=== PATIENT | female | born 1935 | race Asian ===

== ENCOUNTER 2020-12-02 12:38 | Emergency (ER) | payer MEDICARE, OTHER ==
[~2020-12-02] VITALS: Ht 152.4 cm; Wt 54.4 kg
[2020-12-02 12:53] VITALS: BP 139/67
[2020-12-02 13:20] LABS: BASOPHILS % (AUTO) 0.5 % (0.0-2.0); EOSINOPHILS % (AUTO) 0.1 % (0.0-6.0); HEMATOCRIT 35 % (33-45); HEMOGLOBIN 11.3 g/dL (11.5-14.8); LYMPHOCYTES # (AUTO) 1.7 /CMM (0.8-4.8); LYMPHOCYTES % (AUTO) 24.3 % (20.0-44.0); MEAN CORPUSCULAR HGB CONC 32 g/dl (31.0-36.0); MEAN CORPUSCULAR VOLUME 84 fL (82-100); MONOCYTES # (AUTO) 0.8 /CMM (0.1-1.30); MONOCYTES % (AUTO) 10.7 % (2.0-12.0); NEUTROPHILS # (AUTO) 4.6 /CMM (1.8-8.9); NEUTROPHILS % (AUTO) 64.4 % (43.0-81.0); PLATELET COUNT (AUTO) 175 /CMM (150-450); WHITE BLOOD COUNT (AUTO) 7.1 K/uL (4.3-11.0)
--- NOTE | 2020-12-02 13:21 | NUR ---
URINE SAMPLE COLLECTED AND SENT TO LAB.
[2020-12-02 14:27] LABS: ALANINE AMINOTRANSFERASE 38 U/L (12-78); ALBUMIN 3.7 g/dL (3.4-5.0); ALKALINE PHOSPHATASE 71 U/L (46-116); ASPARTATE AMINOTRANSFERASE 32 U/L (15-37); BILIRUBIN,DIRECT 0.2 mg/dL (0.0-0.2); BILIRUBIN,TOTAL 0.6 mg/dL (0.2-1.0); CALCIUM, SERUM 8.8 mg/dL (8.5-10.1); CARBON DIOXIDE 27 mmol/L (21-32); CHLORIDE 98 mmol/L (98-107); CREATININE 0.9 mg/dL (0.6-1.3); GLUCOSE 95 mg/dL (74-106); POTASSIUM 3.9 mmol/L (3.5-5.1); SODIUM SERUM 133 mmol/L (136-145); TOTAL PROTEIN, SERUM 7.8 g/dL (6.4-8.2); UREA NITROGEN, BLOOD 20 mg/dL (7-18)
[2020-12-02 15:30] LABS: BILIRUBIN,URINE NEGATIVE (NEGATIVE); COLOR,URINE YELLOW (YELLOW); LEUKOCYTE ESTERASE ,URINE TRACE (NEGATIVE); NITRITE, URINE NEGATIVE (NEGATIVE); PH,URINE 5.5 (5.0-8.0); PROTEIN,URINE NEGATIVE (NEGATIVE); UGLUCOSE NEGATIVE (NEGATIVE); UROBILINOGEN,URINE 0.2 EU/dL (0.2)
[2020-12-02 16:07] LABS: BACTERIA,URINE RARE /HPF (None Seen); SQUAMOUS EPITHELIAL CELL,UR 0-2 /HPF (None Seen)
--- NOTE | 2020-12-02 16:43 | NUR ---
LAB CALLED PT COVID-19 POSITIVE (+)
--- NOTE | 2020-12-02 16:45 | NUR ---
CALLED AND NOTIFIED OF (+) RAPID COVID RESULT
== END 2020-12-02 16:00 | disposition home or self-care (01) ==
LOC: ER 12:41
DX: U07.1 COVID-19 (principal); R94.31 Abnormal electrocardiogram [ECG] [EKG]; I10 Essential (primary) hypertension; E11.9 Type 2 diabetes mellitus without complications
CPT/HCPCS: 36415; 71045-TC; 80048-TC; 80076-TC; 81001; 83605-TC; 84484-TC; 85025-TC; 85730-TC; 87040-TC; 87086-TC; C9803; U0003

== ENCOUNTER 2020-12-08 18:32 | Inpatient (IN) | payer MEDICARE, OTHER ==
[~2020-12-08] VITALS: Ht 160 cm; Wt 44.5 kg
--- NOTE | 2020-12-08 18:32 | NUR ---
PT BIB DAUGHTER C/O WITNESSED SYNCOPAL EPISODE AND GEN WEAKNESS, COVID + 3 DAYS AGO. PT IS AAOX4, NOT IN RESPIRATORY DISTRESS, HOOKED TO COMPLAINT ADJUSTER, KEPT RESTED AND COMFORTABLE. WILL CONTINUE TO MONITOR.
[2020-12-08] MEDS ORDERED: AZIT250T13 PO (18:48)
[2020-12-08] MEDS ORDERED: ASPI-1420 PO (18:48)
[2020-12-08] MEDS ORDERED: LISI2.5T2 PO (18:48)
[2020-12-08] MEDS ORDERED: METF-440 PO (18:48)
--- NOTE | 2020-12-08 18:50 | NUR ---
IV LINE ESTABLISHED BLOOD DRAWN AND SENT TO LAB.
--- NOTE | 2020-12-08 18:59 | NUR ---
SEEN AND EXAMINED BY .
[2020-12-08] MEDS ORDERED: IV NS 0.9% 500 ML IV ONE (19:00)
[2020-12-08] MEDS ORDERED: ACETAMINOPHEN ES 500 MG TABLET ONE (19:00)
--- NOTE | 2020-12-08 19:02 | NUR ---
PT UNABLE TO PROVIDE URINE SPECIMEN THIS TIME.
--- NOTE | 2020-12-08 19:05 | NUR ---
CORPORATE DEVELOPMENT OFFICER AT BEDSIDE FOR XRAY.
[2020-12-08 19:10] LABS: BASOPHILS % (AUTO) 0.3 % (0.0-2.0); EOSINOPHILS % (AUTO) 0.1 % (0.0-6.0); HEMATOCRIT 34 % (33-45); HEMOGLOBIN 11.3 g/dL (11.5-14.8); LYMPHOCYTES # (AUTO) 1.5 /CMM (0.8-4.8); LYMPHOCYTES % (AUTO) 23.2 % (20.0-44.0); MEAN CORPUSCULAR HGB CONC 33 g/dl (31.0-36.0); MEAN CORPUSCULAR VOLUME 82 fL (82-100); MONOCYTES # (AUTO) 0.9 /CMM (0.1-1.30); NEUTROPHILS # (AUTO) 4.2 /CMM (1.8-8.9); NEUTROPHILS % (AUTO) 63.4 % (43.0-81.0); PLATELET COUNT (AUTO) 226 /CMM (150-450); RED BLOOD CELL COUNT(AUTO) 4.21 MIL/uL (4.0-5.2); WHITE BLOOD COUNT (AUTO) 6.6 K/uL (4.3-11.0)
--- NOTE | 2020-12-08 19:27 | NUR ---
COVID SWAB AND RAPID INFLUENZA OBTAINED AND SENT TO LAB.
[2020-12-08] MEDS ORDERED: ACETAMINOPHEN ES 500 MG TABLET PO ONE (19:30)
--- NOTE | 2020-12-08 19:31 | NUR ---
REPORT GIVEN TO WORKFORCE SERVICES REPRESENTATIVE FOR [facility].
[2020-12-08 19:41] LABS: ABG BASE EXCESS -2.8 mmol/L; ABG OXYGEN SATURATION 97.5 % (92.0-98.5); ABG PCO2 33.6 mmHg (35.0-45.0); ABG PH 7.417 (7.350-7.450); ABG PO2 107.6 mmHg (75.0-100.0); AaDO2 81.3 mmHg; COHb 0.3 % (0.5-1.5); MetHb 0.5 % (0.0-1.5); O2Hb 96.7 % (94.0-97.0); SITE, ABG Right Radial; VENT MODE, BG 3LNC
[2020-12-08 19:41] LABS: ALANINE AMINOTRANSFERASE 30 U/L (12-78); ALBUMIN 3.2 g/dL (3.4-5.0); ALKALINE PHOSPHATASE 56 U/L (46-116); ASPARTATE AMINOTRANSFERASE 44 U/L (15-37); B-TYPE NATRIURETIC PEPTIDE 232 PG/ML (0-125); BILIRUBIN,TOTAL 0.5 mg/dL (0.2-1.0); CALCIUM, SERUM 8.4 mg/dL (8.5-10.1); CARBON DIOXIDE 27 mmol/L (21-32); CHLORIDE 98 mmol/L (98-107); GLUCOSE 111 mg/dL (74-106); POTASSIUM 4.1 mmol/L (3.5-5.1); SODIUM SERUM 134 mmol/L (136-145); TOTAL PROTEIN, SERUM 7.6 g/dL (6.4-8.2)
[2020-12-08 19:57] LABS: UREA NITROGEN, BLOOD 19 mg/dL (7-18)
[2020-12-08 20:24] LABS: D-DIMER 2.68 mg/L(FEU (0.17-0.50)
[2020-12-08 21:12] LABS: CREATINE KINASE, TOTAL 86 U/L (26-192); FERRITIN 828 ng/mL (8-388)
[2020-12-08 21:13] LABS: C-REACTIVE PROTEIN 9.6 mg/dL (0.0-0.9)
--- NOTE | 2020-12-08 21:52 | NUR ---
REPORT CALLED TO SYSTEMS PLANNER ERIC. WILL TRANSPORT PT VIAL ACLS PROTOCOL.
[2020-12-08] MEDS ORDERED: ONDANSETRON HCL/PF 4 MG/2 ML VIAL IVP PRN (22:30)
[2020-12-08] MEDS ORDERED: ALBUTEROL SULFATE 8 GM HFA.AER.AD IH PRN (22:30)
--- NOTE | 2020-12-08 22:30 | NUR ---
TELE/RN NOTES RECEIVED PATIENT FROM ER, PATIENT SUSTAINED NO INJURIES DURING TRANSPORT. PATIENT TRANSFERRED TO BED SAFELY. PATIENT IS ALERT AND ORIENTED X 4. BREATHING IS EVEN AND UNLABORED. PATIENT IS IN NO SIGNS OF RESPIRATORY DISTRESS. PATIENT STATES NO PAIN AT THIS TIME. PATIENT IS STABLE ON 2L OF OXYGEN 93%. PATIENT VITAL SIGNS, BP 124/65 HR 69 RR 21 TEMP 98. PATIENT SKIN IS INTACT. PATIENT SIGNED BELONGINGS LIST. SAFETY MEASURES ARE IN PLACE, BED IS LOCKED AND PLACED IN THE LOWEST POSITION, SIDE RAILS X 2, CALL LIGHT IS WITHIN REACH. WILL CONTINUE TO MONITOR THROUGH OUT SHIFT.
[2020-12-08] MEDS ORDERED: CEFTRIAXONE 1 G VIAL ONE (22:52)
[2020-12-08] MEDS ORDERED: DEXTROSE 50%-WATER 50 ML DISP.SYRIN IV PRN (23:00)
[2020-12-08] MEDS: DOXYCYCLINE HYCLATE (100 MG) 100 MG TABLET PO SCH (23:02)
[2020-12-08] MEDS: CEFTRIAXONE 1 G in IV D5W 50 ML IV SCH (23:03)
[2020-12-08] MEDS: ENOXAPARIN SODIUM 30 MG/0.3 ML DISP.SYRIN SQ SCH (23:04)
[2020-12-08] MEDS: BLOOD SUGAR DIAGNOSTIC 1 EACH STRIP IN SCH (23:13)
[2020-12-08 23:33] VITALS: BP 124/65
[2020-12-09 01:32] VITALS: BP 120/50
[2020-12-09 04:57] VITALS: BP 127/66
[2020-12-09] MEDS: IV NS 0.9% 1,000 ML IV PRN (05:19)
[2020-12-09] MEDS: BLOOD SUGAR DIAGNOSTIC 1 EACH STRIP IN SCH ×4 (06:43→21:48)
--- NOTE | 2020-12-09 07:00 | NUR ---
TELE/RN CLOSING NOTES PATIENT IN BED RESTING. PATIENT IS ALERT AND ORIENTED X 3. STATES NO PAIN AT THIS TIME. PATIENTS BREATHING IS EVEN AND UNLABORED. NO SIGNS OF RESPIRATORY DISTRESS NOTED. PATIENT TOLERATING 2L NC WELL. PATIENT HAS IV ACCESS ON LEFT AC #18G RUNNING NS AT 100 ML/HR. ALL PATIENT NEEDS HAVE BEEN MET DURING SHIFT. SAFETY MEASURES ARE IN PLACE, BED IS LOCKED AND PLACED IN THE LOWEST POSITION, CALL LIGHT IS WITHIN REACH. WILL ENDORSE CARE TO DAY SHIFT NURSE.
--- NOTE | 2020-12-09 07:48 | NUR ---
OPEN NOTES PATIENT IS SLEEPING ON 2L NASAL CANNULA WITH NO SIGNS OF DISTRESS. IV L AC#18G INTACT RUNNING NS AT 100 MLS/HR. ON TELE MONITOR SR 69. NO COMPLAIN OF PAIN AT THIS TIME. SAFETY MEASURES ARE APPLIED BED IS IN THE LOWEST POSITION SIDE RAILS UP X 2. CALL LIGHT WITHIN REACH WILL CONTINUE TO MONITOR.
[2020-12-09 08:00] VITALS: BP 136/69
[2020-12-09] MEDS: DOXYCYCLINE HYCLATE (100 MG) 100 MG TABLET PO SCH ×2 (08:34→20:05)
[2020-12-09 11:06] LABS: BASOPHILS % (AUTO) 0.8 % (0.0-2.0); EOSINOPHILS % (AUTO) 0.5 % (0.0-6.0); HEMATOCRIT 36 % (33-45); HEMOGLOBIN 11.2 g/dL (11.5-14.8); LYMPHOCYTES # (AUTO) 1.5 /CMM (0.8-4.8); LYMPHOCYTES % (AUTO) 26.2 % (20.0-44.0); MEAN CORPUSCULAR HGB CONC 32 g/dl (31.0-36.0); MEAN CORPUSCULAR VOLUME 83 fL (82-100); MONOCYTES # (AUTO) 0.5 /CMM (0.1-1.30); MONOCYTES % (AUTO) 9.6 % (2.0-12.0); NEUTROPHILS # (AUTO) 3.5 /CMM (1.8-8.9); NEUTROPHILS % (AUTO) 62.9 % (43.0-81.0); PLATELET COUNT (AUTO) 245 /CMM (150-450); WHITE BLOOD COUNT (AUTO) 5.5 K/uL (4.3-11.0)
[2020-12-09 11:33] LABS: ALBUMIN 2.8 g/dL (3.4-5.0); BILIRUBIN,TOTAL 0.3 mg/dL (0.2-1.0); CALCIUM, SERUM 8.4 mg/dL (8.5-10.1); CREATININE 0.9 mg/dL (0.6-1.3); TOTAL PROTEIN, SERUM 7.2 g/dL (6.4-8.2)
[2020-12-09 12:00] VITALS: BP 130/68
[2020-12-09] MEDS: INSULIN REGULAR, HUMAN 100 UNIT/ML 3 ML VIAL SQ PRN ×3 (12:23→21:55)
[2020-12-09 16:00] VITALS: BP 149/77
--- NOTE | 2020-12-09 16:00 | NUR ---
PATIENT TEM 100.9, PERFORMED INTERVENTIONS, ICE BAGS REMOVED BLANKETS AND GAVE TYLENOL FOR FEVER. WILL CONTINUE TO MONITOR.
[2020-12-09] MEDS: ACETAMINOPHEN 650 MG/20.3 ML UDC GT PRN (16:24)
--- NOTE | 2020-12-09 17:00 | NUR ---
RE ASSESSED THE TEMP. IS DECREASED TO 99.8 F. ORAL
--- NOTE | 2020-12-09 18:58 | NUR ---
CLOSING NOTES PATIENT IS A/O X 4 ON 2L NASAL CANNULA WITH NO SIGNS OF DISTRESS. IV L AC#18G INTACT RUNNING NS AT 100 MLS/HR. ON TELE MONITOR SR 69. NO COMPLAIN OF PAIN AT THIS TIME. PATIENT KEPT CLEAN AND DRY. ALL NEEDS, CARE, TREATMENT, AND MEDICATIONS WERE ADMINISTERED ANTICIPATED PER ORDER. SAFETY MEASURES ARE APPLIED, BED IS IN LOW POSITION SIDE RAILS UP X 2. CALL LIGHT WITHIN REACH WILL ENDORSE TO THE NEWSWRITER NURSE.
--- NOTE | 2020-12-09 19:40 | NUR ---
grocery checker opening notes Received Pt from morning nurse. Pt is sitting in bed comfortably. Pt is alert and orientedX4. Respiration is on 2 L NC. No SOB. No S/S of distress noted. Tele monitor showed SR hr at 86 bpm. IV site at LAc# 18 is clean, intact and infusing well NS@ 100 ml/hr. Safety precautions is maintained. Bed at low position, brakes locked, side rails upX2, hob elevated and call light is within reach. Will continue to monitor.
[2020-12-09 20:00] VITALS: BP 122/60
[2020-12-09] MEDS: CEFTRIAXONE 1 G in IV D5W 50 ML IV SCH (22:51)
[2020-12-09] MEDS: ENOXAPARIN SODIUM 30 MG/0.3 ML DISP.SYRIN SQ SCH (22:53)
[2020-12-10] VITALS: BP 128/66
[2020-12-10 04:00] VITALS: BP 115/50
[2020-12-10] MEDS: ACETAMINOPHEN 650 MG/20.3 ML UDC GT PRN ×2 (05:09→13:35)
--- NOTE | 2020-12-10 05:09 | NUR ---
gallery or museum attendant notes Pt's temp 99.7. Cooling measures is applied. Administered tylenol 650 mg/po/prn for fever. Safety precautions is maintained. Will continue to monitor.
--- NOTE | 2020-12-10 05:57 | NUR ---
waste examiner notes Pt's temp is 98.8 F. No S/s of distress noted. Will continue to monitor.
--- NOTE | 2020-12-10 07:00 | NUR ---
manager report closing notes Pt is resting in bed comfortably. Pt is alert and orientedX4. Respiration is on 2 L NC. No SOB. No S/S of distress noted. Tele monitor showed SR hr at 86 bpm. IV site at LAC # 18 is clean, intact and infusing well NS@ 100 ml/hr. VS is stable. Afebrile. Routine meds were given as ordered. Kept Pt clean, dry and comfortable. All need met and attended, Safety precautions is maintained. Bed at low position, brakes locked, side rails upX2, hob elevated and call light is within reach. Will endorse to morning nurse for [facility].
[2020-12-10] MEDS: BLOOD SUGAR DIAGNOSTIC 1 EACH STRIP IN SCH ×4 (07:03→21:55)
[2020-12-10] MEDS: INSULIN REGULAR, HUMAN 100 UNIT/ML 3 ML VIAL SQ PRN ×3 (07:04→21:54)
--- NOTE | 2020-12-10 07:20 | NUR ---
TELE/RN OPENING NOTES PATIENT RECEIVED STTING IN THE BED. A/O X4. AFEBRILE. DENIES ANY PAIN. NO S/SX OF RESPIRATORY DISTRESS. NC 2L OF O2. L WRIST #22, INTACT, NS RUNNING 100 ML/HR. SAFETY MEASURES MAINTAINED. BED IN LOWEST POSITION, LOCKED. SIDE RAILS UP X 2. CALL LIGHT WITHIN REACH. WILL CONTINUE PLAN OF CARE.
[2020-12-10 07:23] LABS: BASOPHILS % (AUTO) 0.1 % (0.0-2.0); EOSINOPHILS % (AUTO) 0.2 % (0.0-6.0); HEMATOCRIT 32 % (33-45); HEMOGLOBIN 10.3 g/dL (11.5-14.8); LYMPHOCYTES # (AUTO) 0.8 /CMM (0.8-4.8); LYMPHOCYTES % (AUTO) 14.1 % (20.0-44.0); MEAN CORPUSCULAR HGB CONC 32 g/dl (31.0-36.0); MEAN CORPUSCULAR VOLUME 81 fL (82-100); MONOCYTES # (AUTO) 0.5 /CMM (0.1-1.30); NEUTROPHILS # (AUTO) 4.6 /CMM (1.8-8.9); NEUTROPHILS % (AUTO) 76.6 % (43.0-81.0); PLATELET COUNT (AUTO) 268 /CMM (150-450); RED BLOOD CELL COUNT(AUTO) 3.94 MIL/uL (4.0-5.2); WHITE BLOOD COUNT (AUTO) 5.9 K/uL (4.3-11.0)
[2020-12-10 07:29] LABS: CALCIUM, SERUM 8.5 mg/dL (8.5-10.1); CREATININE 0.8 mg/dL (0.6-1.3); POTASSIUM 3.7 mmol/L (3.5-5.1)
[2020-12-10 08:00] VITALS: BP 105/56
[2020-12-10] MEDS: DOXYCYCLINE HYCLATE (100 MG) 100 MG TABLET PO SCH ×2 (08:37→21:55)
[2020-12-10] MEDS: DEXAMETHASONE SOD PHOSPHATE 10 MG/ML VIAL IV SCH (14:50)
[2020-12-10 15:24] LABS: C-REACTIVE PROTEIN 13.3 mg/dL (0.0-0.9)
[2020-12-10 16:00] VITALS: BP 109/63
--- NOTE | 2020-12-10 19:41 | NUR ---
TELE/RN CLOSING NOTES PATIENT RESTING IN BED COMFORTABLY. A/0 X4. NO SOB. IN NO APPARENT DISTRESS. BREATHING EVEN AND UNLABORED. NC O2 2L/MIN. L WRIST #22 G. ROUTINE MEDS WERE GIVEN. PROVIDED SAFETY MEASURES. BED IN LOWEST POSITION, LOCKED. SIDE RAILS UP X2. CALL LIGHT WITHIN REACH. WILL ENDORSE TO TESTER ROCKET ENGINE FOR [facility].
[2020-12-10 20:00] VITALS: BP 132/76
[2020-12-10] MEDS: ENOXAPARIN SODIUM 30 MG/0.3 ML DISP.SYRIN SQ SCH (21:55)
[2020-12-10] MEDS: CEFTRIAXONE 1 G in IV D5W 50 ML IV SCH (22:00)
[2020-12-11] VITALS: BP 105/64
[2020-12-11 04:00] VITALS: BP 106/66
[2020-12-11] MEDS: IV NS 0.9% 1,000 ML IV PRN ×2 (06:35→15:49)
[2020-12-11] MEDS: BLOOD SUGAR DIAGNOSTIC 1 EACH STRIP IN SCH ×3 (07:05→17:38)
[2020-12-11 07:49] LABS: BASOPHILS % (AUTO) 0.1 % (0.0-2.0); HEMATOCRIT 36 % (33-45); HEMOGLOBIN 11.5 g/dL (11.5-14.8); LYMPHOCYTES # (AUTO) 0.9 /CMM (0.8-4.8); LYMPHOCYTES % (AUTO) 15.8 % (20.0-44.0); MEAN CORPUSCULAR HGB CONC 32 g/dl (31.0-36.0); MEAN CORPUSCULAR VOLUME 81 fL (82-100); MONOCYTES # (AUTO) 0.4 /CMM (0.1-1.30); MONOCYTES % (AUTO) 8.3 % (2.0-12.0); NEUTROPHILS # (AUTO) 4.1 /CMM (1.8-8.9); NEUTROPHILS % (AUTO) 75.8 % (43.0-81.0); PLATELET COUNT (AUTO) 341 /CMM (150-450); RED BLOOD CELL COUNT(AUTO) 4.39 MIL/uL (4.0-5.2); WHITE BLOOD COUNT (AUTO) 5.4 K/uL (4.3-11.0)
[2020-12-11 08:00] VITALS: BP 133/73
[2020-12-11 08:00] LABS: CREATININE 0.8 mg/dL (0.6-1.3); PHOSPHORUS 3.9 mg/dL (2.5-4.9); POTASSIUM 3.9 mmol/L (3.5-5.1)
--- NOTE | 2020-12-11 08:02 | NUR ---
HAND PRESSER OPENING NOTE PATIENT IS IN BED RESTING. PATIENT IS IN NO ACUTE DISTRESS. NO SOB NOTED. PATIENT IS ON NC AT 2L. PATIENT IS ON THERAPEUTIC RECREATION SPECIALIST READING SR 83. SAFETY PRECAUTIONS ARE IN PLACE. BED IS LOCKED AND IN THE LOWEST POSITION. SIDE RAILS ARE UP CALL LIGHT WITHIN REACH. WILL CONTINUE TO MONITOR CLOSELY THROUGH OUT THE SHIFT.
[2020-12-11] MEDS: DEXAMETHASONE SOD PHOSPHATE 10 MG/ML VIAL IV SCH (09:38)
[2020-12-11] MEDS: DOXYCYCLINE HYCLATE (100 MG) 100 MG TABLET PO SCH (09:38)
[2020-12-11 13:48] VITALS: BP 154/79
[2020-12-11 16:00] VITALS: BP 143/75
[2020-12-11] MEDS: INSULIN REGULAR, HUMAN 100 UNIT/ML 3 ML VIAL SQ PRN (17:40)
--- NOTE | 2020-12-11 19:14 | NUR ---
MAILROOM PERSONNELMACHINE LAY OUT WORKER NOTE PATIENT IS IN NO ACUTE DISTRESS. PATIENTS BREATHING EVEN AND UNLABORED. NO SON NOTED. PATIENT IS MEDICALLY STABLE FOR DISCHARGE. DC INSTRUCTIONS PROVIDED. PATIENT VERBALIZED UNDERSTANDING. SKIN ASSESSED, NO SKIN BREAK DOWN NOTED. PATIENT HAS HER BELONGINGS WITH HER. BELONGINGS LIST SIGNED. PATIENT KEPT CLEAN AND DRY THROUGH OUT MY SHIFT. PATIENT NEEDS ADDRESSED. PATIENT IV LINE AND ID BAND REMOVED. PATIENT WAS PICKED UP BY FAMILY. MD IS AWARE OF DISCHARGE.
== END 2020-12-11 19:42 | disposition home or self-care (01) | DRG 177 ==
LOC: ER 18:37 → TRANSITION 20:50 → TELE2 21:35
PROVIDERS: ADMIT Nurse Practitioner Acute Care
DX: U07.1 COVID-19 (principal); J12.82 Pneumonia due to coronavirus disease 2019; J96.01 Acute respiratory failure with hypoxia; J15.9 Unspecified bacterial pneumonia; E87.1 Hypo-osmolality and hyponatremia; E86.0 Dehydration; I10 Essential (primary) hypertension; I70.0 Atherosclerosis of aorta; E11.9 Type 2 diabetes mellitus without complications; Z79.84 Long term (current) use of oral hypoglycemic drugs; Z79.899 Other long term (current) drug therapy; Z79.82 Long term (current) use of aspirin; R79.89 Other specified abnormal findings of blood chemistry
CPT/HCPCS: 36415; 36600; 70450-TC; 71045-TC; 80048-TC; 80053-TC; 82550-TC; 82728-TC; 82962-TC; 83605-TC; 83615-TC; 83735-TC; 83880; 84100-TC; 84484-TC; 85025-TC; 85378-TC; 85385-TC; 85730-TC; 86140-TC; 87040-TC; 87081-TC; G0378; J0696; J1100; J1650; J1815; J7030; J7040; J7060; U0003

== ENCOUNTER 2021-05-29 09:00 | Inpatient (IN) | payer MEDICARE, OTHER ==
[~2021-05-29] VITALS: Ht 185.4 cm; Wt 50.7 kg
[~2021-05-29 09:00] MED LIST: ASPI-1420 PO; AZIT250T13 PO; LISI2.5T2 PO; METF-440 PO
--- NOTE | 2021-05-29 09:22 | NUR ---
BIBDaughter from home "Swelling in extremities/generalized weakness going on for 3wks SOB especially at nighy/sounding congested" Patient a/ox3, breathing even and unlabored, spo2 of 96% on room air. Noted with BUE extremities edema. Placed in a gown, attached to the in class special education teacher.
[2021-05-29 10:13] LABS: BASOPHILS % (AUTO) 0.5 % (0.0-2.0); EOSINOPHILS % (AUTO) 3.6 % (0.0-6.0); HEMATOCRIT 33 % (33-45); HEMOGLOBIN 10.6 g/dL (11.5-14.8); LYMPHOCYTES # (AUTO) 0.7 K/uL (0.8-4.8); LYMPHOCYTES % (AUTO) 10.8 % (20.0-44.0); MEAN CORPUSCULAR HGB CONC 32 g/dl (31.0-36.0); MEAN CORPUSCULAR VOLUME 82 fL (82-100); MONOCYTES # (AUTO) 0.8 K/uL (0.1-1.30); MONOCYTES % (AUTO) 13.1 % (2.0-12.0); NEUTROPHILS # (AUTO) 4.4 K/uL (1.8-8.9); PLATELET COUNT (AUTO) 175 K/uL (150-450); RED BLOOD CELL COUNT(AUTO) 4.02 MIL/uL (4.0-5.2); WHITE BLOOD COUNT (AUTO) 6.1 K/uL (4.3-11.0)
[2021-05-29 10:20] LABS: CALCIUM, SERUM 7.9 mg/dL (8.5-10.1); CARBON DIOXIDE 30 mmol/L (21-32); CHLORIDE 105 mmol/L (98-107); CREATININE 0.8 mg/dL (0.6-1.3); GLUCOSE 125 mg/dL (74-106); POTASSIUM 3.8 mmol/L (3.5-5.1); SODIUM SERUM 140 mmol/L (136-145); UREA NITROGEN, BLOOD 28 mg/dL (7-18)
[2021-05-29 10:26] LABS: ALANINE AMINOTRANSFERASE 95 U/L (12-78); ALBUMIN 2.4 g/dL (3.4-5.0); ALKALINE PHOSPHATASE 47 U/L (46-116); ASPARTATE AMINOTRANSFERASE 159 U/L (15-37); BILIRUBIN,DIRECT 0.2 mg/dL (0.0-0.2); BILIRUBIN,TOTAL 0.7 mg/dL (0.2-1.0); TOTAL PROTEIN, SERUM 5.5 g/dL (6.4-8.2)
--- NOTE | 2021-05-29 10:30 | NUR ---
PATIENT IN BED, RESTING. NO DISTRESS NOTED.
[2021-05-29 10:57] LABS: BILIRUBIN,URINE Negative (NEGATIVE); COLOR,URINE YELLOW (YELLOW); LEUKOCYTE ESTERASE ,URINE Small (NEGATIVE); NITRITE, URINE Negative (NEGATIVE); PH,URINE 5.5 (5.0-8.0); PROTEIN,URINE Negative (NEGATIVE); UGLUCOSE Negative (NEGATIVE); UROBILINOGEN,URINE 0.2 EU/dL (0.2)
[2021-05-29 11:20] LABS: BACTERIA,URINE Few /HPF (None Seen); SQUAMOUS EPITHELIAL CELL,UR Few /HPF (None Seen)
--- NOTE | 2021-05-29 11:42 | NUR ---
PATIENT RESTING, VSS. COVID SWAB SENT.
--- NOTE | 2021-05-29 12:23 | NUR ---
PAGED [facility].
--- NOTE | 2021-05-29 12:44 | NUR ---
DR. DELGADO AT BEDSIDE
--- NOTE | 2021-05-29 13:02 | NUR ---
COVID NEGATIVE PER LAB
--- NOTE | 2021-05-29 13:08 | NUR ---
REPORT GIVEN TO CLIFTON SQUIRES.
--- NOTE | 2021-05-29 13:30 | NUR ---
PATIENT TRANSFERRED TO ROOM 306-1 VIA ACLS PROTOCOL, NO DISTRESS NOTED. NEEDS ATTENDED, ENDORSED TO ZANDRA SQUIRES.
[2021-05-29] MEDS ORDERED: CEFTRIAXONE 1GM BAG (ER ONLY) 1 GM/50 ML PIGGYBACK IV ONE (14:00)
--- NOTE | 2021-05-29 14:46 | NUR ---
EMERGENCY MEDICAL SERVICE COORDINATOR ADMITTING NOTES PT ADMITTED TO UNIT AT 1330 VIA [facility] ACCOMPNIED BY Anna DOYLE RN. PT WALKED FROM [facility] TO BED. PT IS A/O X4. ABLE TO MAKE NEEDS KNOWN, C/O TOLERABLE PAIN TO NECK WITH MOVEMENT AT 1/10 PAIN SCALE LEVEL. PT ORIENTED TO UNIT AND STAFF. DAUGHTER AT BEDSIDE. PT WITH DX OF BILATERAL UPPER EXTREMITIES SWELLING. PT ON ROOM AIR, TOLERATING WELL WITH NO SOB AT THIS TIME. IV ACCESS NOTED ON R-WRIST GAUGE #20 INTACT, PATENT AND FLUSHES WELL. EXTERNAL ENVIRONMENTAL EMERGENCIES ASSISTANT APPLIED WITH READING OF NSR AND HEART RATE IN THE 90'S. NO C/O CARDIAC DISTRESS VOICED. PHOTOS OF SKIN ISSUES TAKEN AND FILED IN CHART. SAFETY MEASURES INITIATED, BED PLACED IN LOWEST LOCKED POSITION, SR X 2, CALL LIGHT PLACED WITHIN EASY REACH OF PT. WILL CONTINUE TO MONITOR.
[2021-05-29] MEDS ORDERED: MAG HYDROX/AL HYDROX/SIMETH 30 ML UDC PO PRN (15:00)
[2021-05-29] MEDS ORDERED: DEXTROSE 50%-WATER 50 ML DISP.SYRIN IV PRN (15:00)
[2021-05-29] MEDS ORDERED: MAGNESIUM HYDROXIDE 30 ML UDC PO PRN (15:00)
[2021-05-29] MEDS ORDERED: ZOLPIDEM TARTRATE 5 MG TABLET PO PRN (15:00)
[2021-05-29] MEDS ORDERED: ACETAMINOPHEN 325 MG TABLET PO PRN (15:00)
[2021-05-29] MEDS ORDERED: ONDANSETRON HCL/PF 4 MG/2 ML VIAL IVP PRN (15:00)
[2021-05-29] MEDS ORDERED: Z GUARD REMEDY 2 OZ OINT TP PRN (15:00)
[2021-05-29] MEDS ORDERED: HYDROCODONE/APAP 5/325MG TABLET PO PRN (15:00)
[2021-05-29] MEDS ORDERED: IOHEXOL-300 100 ML VIAL IV ONE (15:32)
[2021-05-29] MEDS ORDERED: IV NS 0.9% 250 ML IV ONE (15:33)
[2021-05-29] MEDS ORDERED: CT SWABBABLE VALVE TRANS SET 1 EA INFUS.SET MC ONE (15:33)
[2021-05-29 16:00] VITALS: BP 131/51
[2021-05-29] MEDS: METFORMIN 500 MG TABLET PO SCH (17:00)
[2021-05-29] MEDS: BLOOD SUGAR DIAGNOSTIC 1 EACH STRIP IN SCH ×2 (18:03→21:18)
[2021-05-29] MEDS: INSULIN REGULAR, HUMAN 100 UNIT/ML 3 ML VIAL SQ PRN (18:05)
[2021-05-29] MEDS: ENOXAPARIN SODIUM 40 MG/0.4 ML DISP.SYRIN SQ SCH (18:09)
--- NOTE | 2021-05-29 19:00 | NUR ---
BDC MANAGER CLOSING NOTES PT IN BED AWAKE AND RESTING AT MODERATE HIGH BACKREST POSITION. A/O X4. ABLE TO MAKE NEEDS KNOWN. ON ROOM AIR, TOLERATING WELL WITH NO SOB AT THIS TIME. IV ACCESS ON R-WRIST GAUGE #20 INTACT, PATENT AND FLUSHES WELL. ON EXTERNAL QUARRY WORKER WITH READING OF NSR AND HR ON THE 90'S, NO C/O CARDIAC DISTRESS VOICED. ALL NEEDS NAD CARE ATTENDED WELL. SAFETY MEASURES MAINTAINED: BED IN LOWEST LOCKED POSITION, SR X 2, CALL LIGHT WITHIN EASY REACH OF PT. WILL ENDORSE [facility] TO VISCOSE DEPARTMENT WORKER NURSE..
--- NOTE | 2021-05-29 19:15 | NUR ---
SALES ORDER ADMINISTRATOR NOTES RECEIVED LYING COMFORTABLY ON BED,A/O X4,SPEAK TAGALOG,WITH HOB ELEVATED,BREATHING REGULAR,NOT IN ANY FORM OF DISTRESS,NOTED PUFFY FACE,SWELLING LEFT ARM,ELEVATED ON PILLOWS.SALINE LOCK RIGHT WRIST INTACT AND PATENT.ABLE TO MAKE NEEDS KNOWN,ASSIST WITH ADL;S,CALL LIGHT IN REACH,NEEDS ANTICIPATED.
--- NOTE | 2021-05-29 19:30 | NUR ---
CENTRAL OFFICE REPAIRER SUPERVISOR NOTES SR-87 ON TELE MONITOR
[2021-05-29 20:00] VITALS: BP 116/50
[2021-05-30] VITALS: BP 113/56
[2021-05-30 05:04] VITALS: BP 115/61
[2021-05-30 05:09] VITALS: BP 115/61
[2021-05-30 05:44] LABS: BASOPHILS % (AUTO) 0.5 % (0.0-2.0); EOSINOPHILS % (AUTO) 3.1 % (0.0-6.0); HEMATOCRIT 34 % (33-45); LYMPHOCYTES # (AUTO) 0.9 K/uL (0.8-4.8); LYMPHOCYTES % (AUTO) 14.9 % (20.0-44.0); MEAN CORPUSCULAR HGB CONC 32 g/dl (31.0-36.0); MEAN CORPUSCULAR VOLUME 82 fL (82-100); MONOCYTES # (AUTO) 0.9 K/uL (0.1-1.30); MONOCYTES % (AUTO) 13.7 % (2.0-12.0); NEUTROPHILS # (AUTO) 4.3 K/uL (1.8-8.9); NEUTROPHILS % (AUTO) 67.8 % (43.0-81.0); PLATELET COUNT (AUTO) 177 K/uL (150-450); RED BLOOD CELL COUNT(AUTO) 4.16 MIL/uL (4.0-5.2); WHITE BLOOD COUNT (AUTO) 6.3 K/uL (4.3-11.0)
--- NOTE | 2021-05-30 05:45 | NUR ---
HOME HEALTH CARE WORKER NOTES ACCU-CHECK BLOOD SUGAR CHECK 112,NO INSULIN COVERAGE.
[2021-05-30 06:02] LABS: CALCIUM, SERUM 7.8 mg/dL (8.5-10.1); CREATININE 0.8 mg/dL (0.6-1.3); PHOSPHORUS 3.7 mg/dL (2.5-4.9)
[2021-05-30 06:12] LABS: THYROID STIMULATING HORMONE 2.247 uIU/mL (0.358-3.74)
--- NOTE | 2021-05-30 06:20 | NUR ---
BRANDS EDITOR NOTES CALM AND QUIET THRU OUT SHIFT,SLEEP WELL.BOTH ARMS REMAINS SWOLLEN AND HARD TO THE TOUCH,PROMINENT ON LEFT ARM.FOR ULTRASOUND ABDOMEN COMPLETE TO R/O GALLBLADDER DISEASE ORDERED BY DR CURRY.NEGATIVE FOR SOB,DUE MEDS ADMINISTERED,IN NO ACUTE DISTRESS,WILL ENDORSE TO DAY NURSE FOR [facility].
[2021-05-30] MEDS: BLOOD SUGAR DIAGNOSTIC 1 EACH STRIP IN SCH ×4 (07:58→22:23)
--- NOTE | 2021-05-30 08:00 | NUR ---
RN OPENING NOTE PT IS AWAKE IN BED RESTING. A/O X4 AND UNDERSTAND LAO. NO COMPLAINT OF PAIN OR NAUSEA. ON MEDICAL DRIVER. EDEMA PRESENT ON LUE AND PITTING. PT IS SELF AMBULATORY WITH COMMODE AT BEDSIDE. SKIN REDNESS NOTED. PT ON STRICT I/O. IV PRESENT ON R WRIST 20G AND FLUSHES WELL. LABS AND ORDERS REVIEWED. SAFETY MEASURES IN PLACE. SIDE RAILS RAISED. BED LOWERED. CALL LIGHT WITHIN REACH. WILL CONTINUE TO MONITOR.
[2021-05-30] MEDS: ASPIRIN EC 81 MG TABLET.DR PO SCH (08:10)
[2021-05-30] MEDS: PANTOPRAZOLE 40 MG TABLET.DR PO SCH (08:10)
[2021-05-30] MEDS: METFORMIN 500 MG TABLET PO SCH ×2 (09:00→16:55)
[2021-05-30 09:06] LABS: ALBUMIN 2.2 g/dL (3.4-5.0); BILIRUBIN,DIRECT 0.1 mg/dL (0.0-0.2); BILIRUBIN,TOTAL 0.6 mg/dL (0.2-1.0); TOTAL PROTEIN, SERUM 5.1 g/dL (6.4-8.2)
[2021-05-30] MEDS: INSULIN REGULAR, HUMAN 100 UNIT/ML 3 ML VIAL SQ PRN ×3 (11:22→22:32)
[2021-05-30] MEDS ORDERED: IV NS 0.9% 250 ML IV ONE (13:44)
[2021-05-30] MEDS ORDERED: IOHEXOL-300 100 ML VIAL IV ONE (13:44)
[2021-05-30] MEDS ORDERED: CT SWABBABLE VALVE TRANS SET 1 EA INFUS.SET MC ONE (13:45)
[2021-05-30 16:06] VITALS: BP 120/65
[2021-05-30] MEDS: GLUCERNA SHAKE 237 ML CAN PO SCH (16:55)
[2021-05-30 17:01] LABS: IRON, SERUM 19 ug/dl (50-175); TOTAL IRON BINDING CAPACITY 140 ug/dl (250-450)
[2021-05-30 17:14] LABS: FERRITIN 316 ng/mL (8-388)
--- NOTE | 2021-05-30 18:50 | NUR ---
RN CLOSING NOTE PT IS AWAKE IN BED RESTING. A/O X4 AND UNDERSTAND [place]. NO COMPLAINT OF PAIN OR NAUSEA. NO VP CONSTRUCTION. EDEMA PRESENT ON LUE AND PITTING. PT IS SELF AMBULATORY WITH COMMODE AT BEDSIDE. SKIN REDNESS NOTED. PT ON STRICT I/O. IV PRESENT ON R WRIST 20G AND FLUSHES WELL. LABS AND ORDERS REVIEWED. ROUTINE MEDS GIVEN. SAFETY MEASURES IN PLACE. SIDE RAILS RAISED. BED LOWERED. CALL LIGHT WITHIN REACH. REPORT TO BE GIVEN TO NIGHT NURSE FOR [facility].
--- NOTE | 2021-05-30 19:30 | NUR ---
MSRN OOB ON A CHAIR, RESTING QUIETLY, HAVE LEFT ARM ELEVATED ON 2 PILLOWS, ARM SWOLLEN. STATES PAINFUL SPECIALLY WHEN MOVING ARM. DAUGHTER AT BEDSIDE. STATES PATIENT DECLINES PAIN MED. WILL REASSESS PAIN AND REMINDED PATIENT TO CALL STAFF IF PAIN WORSENS. SAFETY PRECAUTION EMPHASIZED, CALL LIGHT WITHIN REACH. NO SOB. STEADY GAIT. CLOSELY WATCHED.
[2021-05-30 20:00] VITALS: BP 104/68
[2021-05-30] MEDS: ENOXAPARIN SODIUM 40 MG/0.4 ML DISP.SYRIN SQ SCH (20:40)
--- NOTE | 2021-05-30 22:00 | NUR ---
MSRN BS 144, COVERED WITH 2 UNITS REGULAR INSULIN SQ. DECLINED SNACK STATED STILL FULL FROM DINNER FOOD FROM HOME. REFUSED TO TAKE PAIN MED FOR HER LEFT ARM. ARM ELEVATED ON 2 PILLOWS. VERY PLEASANT, KEPT COMFORTABLE. REMINDED TO CALL STAFF FOR ANY FURTHER DISCOMFORTS OR ASSISTANCE CALL LIGHT USE REVIEWED WITH PATIENT, WELL UNDERSTOOD. CALL LIGHT WITHIN REACH. SAFETY PRECAUTIONS EMPHASIZED. CLOSELY WATCHED.
--- NOTE | 2021-05-31 00:03 | NUR ---
MSRN SLEEPING APPEARS COMFORTABLE, OBSERVED.
[2021-05-31] MEDS: BLOOD SUGAR DIAGNOSTIC 1 EACH STRIP IN SCH ×4 (06:07→22:49)
--- NOTE | 2021-05-31 06:07 | NUR ---
MSRN ASSISTED TO BSC VOIDED FREELY. UNABLE TO GET OUT OF BED BY HERSELF, STATED PAIN ON BOTH ARMS GETTING WORSE. OFFERED PAIN MED NORCO 1 TAB ADMINISTERED. PROVIDED WARM MILK WITH MED. SAT ON A CHAIR OF THIS TIME. WILL CALL IF NEEDED.
--- NOTE | 2021-05-31 06:10 | NUR ---
TELERN BLOOD SUGAR WAS 100 NO COVERAGE.
--- NOTE | 2021-05-31 07:00 | NUR ---
MSRN WEIGHT TODAY 114 LBS. ENDORSED TO INCOMING RN
[2021-05-31 07:41] VITALS: BP 121/61
[2021-05-31] MEDS: PANTOPRAZOLE 40 MG TABLET.DR PO SCH (07:44)
[2021-05-31] MEDS: GLUCERNA SHAKE 237 ML CAN PO SCH ×2 (07:45→17:08)
--- NOTE | 2021-05-31 07:49 | NUR ---
RN OPENING NOTE PT AWAKE AND SITTING IN CHAIR. A/O X4 AND UNDERSTANDS LIMITED DUTCH. NO COMPLAINT OF PAIN OR NAUSEA. ON RA WITH NO SOB OR RESPIRATORY DISTRESS PRESENT. EDEMA PRESENT ON UPPER ARMS AND PITTING. NO DIRECTOR OF GROUP SALES PRESENT. ON BEDREST WITH COMMODE AT BEDSIDE. SKIN IS INTACT. SOME REDNESS NOTED. IV PRESENT ON R WRIST 20G AND FLUSHES WELL. LABS AND ORDERS REVIEWED. SAFETY MEASURES IN PLACE. SIDE RAILS RAISED. BED LOWERED. CALL LIGHT WITHIN REACH. WILL CONTINUE TO MONITOR.
[2021-05-31] MEDS: METFORMIN 500 MG TABLET PO SCH ×2 (08:01→17:00)
[2021-05-31] MEDS: ASPIRIN EC 81 MG TABLET.DR PO SCH (08:01)
[2021-05-31] MEDS ORDERED: DOCUSATE SODIUM LIQ 100 MG/10 ML UDC NG ONE (12:00)
[2021-05-31 16:00] VITALS: BP 110/59
--- NOTE | 2021-05-31 17:49 | NUR ---
RN CLOSING NOTE PT IS AWAKE IN BED RESTING. A/O X4 AND UNDERSTAND [place]. NO COMPLAINT OF PAIN OR NAUSEA. NO CLEANER SIGNS. EDEMA PRESENT ON BUE AND BLE. PT IS SELF AMBULATORY WITH COMMODE AT BEDSIDE. SKIN REDNESS NOTED. IV PRESENT ON R WRIST 20G AND FLUSHES WELL. LABS AND ORDERS REVIEWED. ROUTINE MEDS GIVEN. SAFETY MEASURES IN PLACE. SIDE RAILS RAISED. BED LOWERED. CALL LIGHT WITHIN REACH. REPORT TO BE GIVEN TO NIGHT NURSE FOR [facility].
[2021-05-31 20:00] VITALS: BP 129/61
--- NOTE | 2021-05-31 20:20 | NUR ---
MS/TELE/RN ON INITIAL SHIFT ROUNDING, PATIENT WAS IN ROOM SITTING AT EDGE OF BED, DAUGHTER AT BEDSIDE, PATIENT WAS AWAKE, ALERT, ORIENTED, COMFORTABLE, NO C/O PAIN, NO DISTRESS NOTED, CALL LIGHT IN REACH, WILL MONITOR.
[2021-05-31] MEDS: ENOXAPARIN SODIUM 40 MG/0.4 ML DISP.SYRIN SQ SCH (22:58)
--- NOTE | 2021-06-01 06:13 | NUR ---
MS/TELE/RN PATIENT IS AWAKE, ALERT, ORIENTED, COMFORTABLE, NO SIGNS OF DISTRESS NOTED, NO CHANGE IN CONDITION, CALL LIGHT IN REACH, ALL NEEDS ATTENDED AT THIS TIME, WILL CONTINUE TO MONITOR.
[2021-06-01 06:38] LABS: BASOPHILS % (AUTO) 0.8 % (0.0-2.0); HEMATOCRIT 34 % (33-45); HEMOGLOBIN 10.6 g/dL (11.5-14.8); LYMPHOCYTES # (AUTO) 0.9 K/uL (0.8-4.8); LYMPHOCYTES % (AUTO) 14.4 % (20.0-44.0); MEAN CORPUSCULAR HGB CONC 31 g/dl (31.0-36.0); MEAN CORPUSCULAR VOLUME 82 fL (82-100); MONOCYTES # (AUTO) 0.8 K/uL (0.1-1.30); MONOCYTES % (AUTO) 13.6 % (2.0-12.0); NEUTROPHILS # (AUTO) 4.1 K/uL (1.8-8.9); NEUTROPHILS % (AUTO) 66.2 % (43.0-81.0); PLATELET COUNT (AUTO) 200 K/uL (150-450); RED BLOOD CELL COUNT(AUTO) 4.12 MIL/uL (4.0-5.2); WHITE BLOOD COUNT (AUTO) 6.1 K/uL (4.3-11.0)
[2021-06-01 07:00] LABS: ALBUMIN 2.2 g/dL (3.4-5.0); BILIRUBIN,TOTAL 0.7 mg/dL (0.2-1.0); CALCIUM, SERUM 8.1 mg/dL (8.5-10.1); CREATININE 0.7 mg/dL (0.6-1.3); MAGNESIUM 1.9 mg/dL (1.8-2.4); PHOSPHORUS 3.7 mg/dL (2.5-4.9); POTASSIUM 3.8 mmol/L (3.5-5.1); TOTAL PROTEIN, SERUM 5.2 g/dL (6.4-8.2)
[2021-06-01] MEDS ORDERED: BLOOD SUGAR DIAGNOSTIC 1 EACH STRIP IN SCH (07:00)
[2021-06-01] MEDS: BLOOD SUGAR DIAGNOSTIC 1 EACH STRIP IN SCH ×3 (07:20→16:52)
[2021-06-01 08:00] VITALS: BP 119/56
--- NOTE | 2021-06-01 08:00 | NUR ---
RN OPENING NOTE PATIENT RECEIVED IN BED AO X 4, ABLE TO RESPONDS ALL STIMULI. NO S/S OF DISTRESS OBSERVED. SKIN IS WARM TO TOUCH, KEEP CLEAN/DRY. RESPIRATORY EVEN AND UNLABORED ON ROOM AIR. KEEP ELEVATED HOB FOR ENSURE AIRWAY AND ASPIRATION PRECAUTION, ALSO LOWEST BED POSITION FOR SAFETY. CALL LIGHT WITHIN REACH, WILL CONTINUE TO MONITOR.
[2021-06-01] MEDS: METFORMIN 500 MG TABLET PO SCH ×2 (08:06→15:32)
[2021-06-01] MEDS: ASPIRIN EC 81 MG TABLET.DR PO SCH (08:06)
[2021-06-01] MEDS: PANTOPRAZOLE 40 MG TABLET.DR PO SCH (08:06)
[2021-06-01] MEDS: GLUCERNA SHAKE 237 ML CAN PO SCH ×2 (08:09→16:53)
[2021-06-01] MEDS ORDERED: IOHEXOL-350 100 ML VIAL IV ONE (10:57)
[2021-06-01] MEDS ORDERED: IV NS 0.9% 250 ML IV ONE (10:57)
[2021-06-01] MEDS ORDERED: CT SWABBABLE VALVE TRANS SET 1 EA INFUS.SET MC ONE (10:57)
--- NOTE | 2021-06-01 15:32 | NUR ---
PATIENT HAD DONE CT WITH CONTRAST, WILL HOLD METFORMIN.
[2021-06-01] MEDS ORDERED: FERROUS SULFATE (325 MG) 325 MG/TAB TABLET PO SCH (17:00)
--- NOTE | 2021-06-01 17:30 | NUR ---
PATIENT SIGNED AMA AND [facility] FACILITY. PRIMARY NURSE LEFT MESSAGE TO PRIMARY MD FOR OBTAIN DISCHARGE ORDER X 3 BUT NO RESPONSE, SO PATIENT LEFT WITHOUT MD ORDER. PATIENT VERBALLY UNDERSTAND ABOUT THE RISKS AND CONSEQUENCES LEAVING THE HOSPITAL. REMOVED IV AND ID BAND BEFORE PATIENT LEAVE. LEFT MASSAGE MD.
[2021-06-02 08:06] LABS: AFP, TUMOR MARKER 1.5 ng/mL (0.0-8.3)
[2021-06-03 11:07] LABS: *SPE A/G RATIO 0.9 (0.7-1.7); *SPE ALBUMIN 2.1 g/dL (2.9-4.4); *SPE ALPHA-1-GLOBULIN 0.2 g/dL (0.0-0.4); *SPE ALPHA-2-GLOBULIN 0.6 g/dL (0.4-1.0); *SPE BETA GLOBULIN 0.8 g/dL (0.7-1.3); *SPE GLOBULIN, TOTAL 2.4 g/dL (2.2-3.9); *SPE M-SPIKE Not Observed g/dL (Not Observed); *SPEGAMMA GLOBULIN 0.8 g/dL (0.4-1.8)
[2021-06-04 11:07] LABS: IMMUNOGLOBULIN A, SERUM 146 mg/dL (64-422); IMMUNOGLOBULIN G, SERUM 868 mg/dL (586-1602); IMMUNOGLOBULIN M, SERUM 40 mg/dL (26-217)
== END 2021-06-01 17:30 | disposition left against medical advice (07) | DRG 555 ==
LOC: ER 09:09 → TELE 13:19 → MED 05-30 09:27
PROVIDERS: ATTEND Hospitalist
DX: M79.89 Other specified soft tissue disorders (principal); E43 Unspecified severe protein-calorie malnutrition; Z68.1 Body mass index [BMI] 19.9 or less, adult; E11.9 Type 2 diabetes mellitus without complications; E78.5 Hyperlipidemia, unspecified; Z20.822 Contact with and (suspected) exposure to COVID-19; I11.0 Hypertensive heart disease with heart failure; I50.9 Heart failure, unspecified; D64.9 Anemia, unspecified; E61.1 Iron deficiency; Z79.84 Long term (current) use of oral hypoglycemic drugs; Z86.16 Personal history of COVID-19; Z87.891 Personal history of nicotine dependence; M25.512 Pain in left shoulder; R79.89 Other specified abnormal findings of blood chemistry; R74.01 Elevation of levels of liver transaminase levels; J84.10 Pulmonary fibrosis, unspecified; R91.1 Solitary pulmonary nodule; E88.09 Other disorders of plasma-protein metabolism, not elsewhere classified
CPT/HCPCS: 36415; 70491-TC; 71045-TC; 71260-TC; 76536-TC; 76641-TC; 76700-TC; 80048-TC; 80053-TC; 80061-TC; 80076-TC; 81001; 82105; 82378; 82728-TC; 82784; 82962-TC; 83540-TC; 83735-TC; 83880; 84100-TC; 84155; 84165; 84439-TC; 84443-TC; 84484-TC; 85025-TC; 86300; 86301; 86334; 86800; 87081-TC; 87086-TC; 93307-TC; 93970-TC; 97116-TC; 97530-TC; A4565; C9803; G0378; J0696; J1650; J1815; J7050; Q9967